=== PATIENT | male | born 1970 | race African-American/Black ===

== ENCOUNTER 2017-10-05 23:39 | Emergency (ER) | payer OTHER ==
[~2017-10-05] VITALS: Ht 193 cm; Wt 129.3 kg
[2017-10-06] MEDS ORDERED: LOSARTAN POTASS25 MG PO (00:12)
[2017-10-06] MEDS ORDERED: METFORMIN HCL500 MG PO (00:12)
[2017-10-06] MEDS ORDERED: KETOROLAC TROMETHAMINE 60 MG/2 ML VIAL IM ONE (01:00)
== END 2017-10-06 01:16 | disposition home or self-care (01) ==
LOC: FSED 23:39
DX: M54.2 Cervicalgia (principal); S16.1XXA Strain of muscle, fascia and tendon at neck level, initial encounter; M54.5 Low back pain; S33.5XXA Sprain of ligaments of lumbar spine, initial encounter; M54.16 Radiculopathy, lumbar region; M54.12 Radiculopathy, cervical region
CPT/HCPCS: 72131; 99283